=== PATIENT | male | born 1985 | race Caucasian/White ===

== ENCOUNTER 2016-05-02 08:07 | Emergency (ER) | payer OTHER ==
[~2016-05-02] VITALS: Ht 177.8 cm; Wt 97.5 kg
[2016-05-02] MEDS ORDERED: FOLIC ACID 1 MG TAB PO ONE (11:00)
[2016-05-02] MEDS ORDERED: MULTIPLE VITAMIN TAB PO ONE (11:00)
[2016-05-02] MEDS ORDERED: THIAMINE HCL 100 MG TAB PO ONE (11:00)
[2016-05-02] MEDS ORDERED: SODIUM CHLORIDE 0.9% 1,000 ML IV ONE (11:00)
[2016-05-02] MEDS ORDERED: LORazepam 2MG/ML-1ML VIAL IV ONE (11:00)
[2016-05-02] MEDS ORDERED: AZITHROMYCIN 250 MG TAB PO ONE (11:00)
[2016-05-02 11:50] LABS: Albumin 4.3 g/dL (3.4-5.0); BUN/Creatinine Ratio 17.6; Bilirubin, Total 1.1 mg/dL (0.2-1.0); Total Protein 8.2 g/dL (6.4-8.2)
[2016-05-02 11:54] LABS: Basophils # (auto) 0 uL; Basophils % (auto) 0.2 % (0.0-2.0); Eosinophils # (auto) 0 uL; Eosinophils % (auto) 0.2 % (0.0-7.0); Hematocrit 48.6 % (41.0-53.0); Hemoglobin 16.3 g/dL (13.5-17.5); Lymphocytes # (auto) 2.5 uL; Mean Corpuscular Hemoglobin 28.5 pg (28.0-32.0); Mean Corpuscular Hgb Conc. 33.6 g/dL (32.0-36.0); Mean Corpuscular Volume 84.9 fL (80.0-100.0); Mean Platelet Volume 6.7 fL (7.4-10.4); Monocytes # (auto) 0.4 uL; Monocytes % (auto) 3.3 % (0.0-12.0); Neutrophils # (auto) 8.9 uL; Neutrophils % (auto) 75.3 % (37.0-80.0); Platelet Count (auto) 346 10^3/uL (140-450); SUSPECT VIEW TRANSMISSION; White Blood Cell 11.8 10^3/uL (4.4-10.8)
[2016-05-02 12:31] VITALS: BP 132/98
== END 2016-05-02 14:12 | disposition home or self-care (01) ==
LOC: EDBD 08:07 → ER 08:12
DX: F10.239 Alcohol dependence with withdrawal, unspecified (principal); F32.9 Major depressive disorder, single episode, unspecified; E16.2 Hypoglycemia, unspecified; R74.0 Nonspecific elevation of levels of transaminase and lactic acid dehydrogenase [LDH]; F17.210 Nicotine dependence, cigarettes, uncomplicated; F41.9 Anxiety disorder, unspecified; G47.00 Insomnia, unspecified; Z20.2 Contact with and (suspected) exposure to infections with a predominantly sexual mode of transmission
CPT/HCPCS: 36415; 80053; 82962; 85025; 86703; 87491; 87591; 96361; 96374; 99284; J2060; J7030

== ENCOUNTER 2016-05-30 14:38 | Emergency (ER) | payer OTHER ==
[~2016-05-30] VITALS: Ht 188 cm; Wt 49.9 kg
[2016-05-30 15:04] VITALS: BP 124/79
== END 2016-05-30 19:14 | disposition left against medical advice (07) ==
LOC: EDBD 14:38 → ER 14:40
DX: F10.120 Alcohol abuse with intoxication, uncomplicated (principal); F10.239 Alcohol dependence with withdrawal, unspecified; Z53.21 Procedure and treatment not carried out due to patient leaving prior to being seen by health care provider
CPT/HCPCS: 36415; 80320

== ENCOUNTER 2022-09-05 04:34 | Emergency (ER) | payer OTHER ==
[~2022-09-05] VITALS: Ht 188 cm; Wt 118.1 kg
[2022-09-05 04:40] VITALS: BP 127/84
[2022-09-05 04:54] LABS: Basophils # (auto) 0 10 ^3/uL (0-0.2); Basophils % (auto) 0.5 % (0.0-2.0); Eosinophils # (auto) 0.3 10 ^3/uL (0-0.8); Eosinophils % (auto) 2.9 % (0.0-7.0); Hematocrit 44.4 % (41.0-53.0); Hemoglobin 15.3 g/dL (13.5-17.5); Lymphocytes # (auto) 4.6 10 ^3/uL (0.4-5.4); Lymphocytes % (auto) 49.4 % (10.0-50.0); Mean Corpuscular Hemoglobin 29.3 pg (28.0-32.0); Mean Corpuscular Hgb Conc. 34.6 g/dL (32.0-36.0); Mean Corpuscular Volume 84.6 fL (80.0-100.0); Monocytes # (auto) 0.7 10 ^3/uL (0-1.3); Neutrophils # (auto) 3.7 10 ^3/uL (1.6-8.6); Neutrophils % (auto) 39.2 % (37.0-80.0); Nucleated Red Blood Cells % 0.1 %; Red Blood Cells 5.24 10^6/uL (4.5-5.90); Red Cell Distribution Width 12.8 % (11.8-14.3); White Blood Cell 9.4 10^3/uL (4.4-10.8)
[2022-09-05 05:04] LABS: Urine Bacteria NONE SEEN /hpf (None Seen); Urine Blood Negative /uL (Negative); Urine Specific Gravity 1.003 (1.001-1.035); Urine WBC <1 /hpf (0 - 3)
[2022-09-05 05:10] LABS: Albumin 3.9 g/dL (3.4-5.0); Calcium 8.8 mg/dL (8.5-10.1); Potassium 3.8 mmol/L (3.5-5.1)
[2022-09-05 05:13] LABS: BUN/Creatinine Ratio 19.4 (10.0-20.0); Bilirubin, Total 0.5 mg/dL (0.2-1.0); Total Protein 7.4 g/dL (6.4-8.2)
== END 2022-09-05 07:23 | disposition home or self-care (01) ==
LOC: ER 04:34
DX: K21.9 Gastro-esophageal reflux disease without esophagitis (principal); R07.89 Other chest pain; F17.210 Nicotine dependence, cigarettes, uncomplicated; F10.10 Alcohol abuse, uncomplicated; F32.9 Major depressive disorder, single episode, unspecified; Y90.9 Presence of alcohol in blood, level not specified
CPT/HCPCS: 36415; 71045; 80053; 81001; 84484; 85025; 93005